=== PATIENT | female | born 1935 | race Caucasian/White ===

== ENCOUNTER → 2023-02-08 | Outpatient (CLI) | payer MEDICARE | LOC: DX 10:38 | PROVIDERS: ATTEND Orthopaedic Surgery Sports Medicine | DX: M81.0 Age-related osteoporosis without current pathological fracture (principal); M17.12 Unilateral primary osteoarthritis, left knee; M17.11 Unilateral primary osteoarthritis, right knee | CPT/HCPCS: 77080 ==